=== PATIENT | female | born 1985 | race American Indian/Alaskan Native ===

== ENCOUNTER 2020-07-23 17:43 | Emergency (ER) | payer OTHER, SELFPAY ==
[2020-07-23 19:22] VITALS: BP 118/68; PULSE 80; RESP 14; TEMP 36.8; O2SAT 100; BMI 34.3
--- NOTE | 2020-07-23 19:46 | PC.NURSE ---
pt wants to go home to check on her daughter due to she is getting calls from home. pt sat 100% on room air talking in full sentences and has a steady gait. [id number]
== END 2020-07-23 19:48 | disposition left against medical advice (07) ==
LOC: HO.ED 20:45
PROVIDERS: Emergency Provider Emergency Medicine
DX: R06.02 Shortness of breath (principal)
CPT/HCPCS: 99282

== ENCOUNTER 2021-01-04 13:56 | Emergency (ER) | payer OTHER, SELFPAY ==
--- NOTE | ~2021-01-04 | US_ITS ---
EXAMINATION: TRANSABDOMINAL AND TRANSVAGINAL PELVIC ULTRASOUND CLINICAL INFORMATION: Positive beta hCG gestational age by last menstrual period 3 weeks, 2 days. COMPARISON: No priors. TECHNIQUE: Transabdominal and transvaginal imaging of the pelvis was obtained using beverly scale and color Doppler imaging. FINDINGS: No intrauterine is visualized. No focal myometrial mass was seen. The endometrium was increased in thickness. Trace simple pelvic ascites in the cul-de-sac. Right ovary measures 4.3 x 4.4 x 3.0 cm area Simple right ovarian cyst measures up to 3.6 x 2.8 x 3.3 cm likely functional. Left ovary is normal measuring up to 2.1 x 1.9 x 1.7 cm. No adnexal mass appreciated. Spectral Doppler imaging of the ovaries was not performed. The urinary bladder is normal in appearance. US/US OB <= 14 wk fetus add gest Impression: of unknown location. Given gestational age by last menstrual period of 3 weeks and 2 days and decidual reaction in the uterus, findings are likely sequelae of early . Differential diagnosis includes early intrauterine , failed , and less likely ectopic given no evidence of an adnexal mass or complex ascites is appreciated. Recommend clinical correlation, serial quantitative beta HCGs, ectopic precautions, and followup ultrasound as clinically appropriate.
--- NOTE | ~2021-01-04 | NM_ITS ---
EXAMINATION: PULMONARY PERFUSION STUDY CLINICAL INFORMATION: . Elevated d-dimer. Hemoptysis. Shortness of breath. COMPARISON: Chest radiograph from 01/04/2021. TECHNIQUE: The patient received 0.8 mCi Tc-99m MAA intravenously and a 8-view perfusion study was performed. FINDINGS: Ventilation Images: No ventilation examination was performed. Perfusion Images: No segmental perfusion defects are present. There is homogeneous distribution of activity bilaterally. There are no focal anatomic appearing perfusion defects present. NM/NM pul perfusion IMPRESSION: Normal radionuclide lung perfusion scan.
--- NOTE | ~2021-01-04 | XR_ITS ---
EXAMINATION: XR CHEST CLINICAL INFORMATION: Cough, shortness of breath. COMPARISON: Chest done on 02/01/2019. TECHNIQUE: Frontal view of the chest was obtained. FINDINGS: Low lung volume is present bilaterally. No significant abnormality is noted involving the heart, lungs, mediastinum, bony thorax or soft tissues. XR/XR chest 1V IMPRESSION: Low lung volume. No radiographic evidence of pneumonia.
--- NOTE | 2021-01-04 14:20 | PC.NURSE ---
pt ambulated into triage room where another patient was being triaged and began to yell at nursing staff that she wanted to be seen and did not have to wait. Pt continued yelling when asked to step out of the triage area where another patient was being evaluated and refused to return to the Covid waiting area. Pt then paced around the waiting area yelling and says she is here because she cannot breath. Pt was asked to stop yelling and return to her seat. She refused and exited the ER while continuing to yell at staff and security.
--- NOTE | 2021-01-04 14:31 | PC.NURSE ---
pt calmed down, was able to return to triage area and be evaluated.
[2021-01-04 14:33] VITALS: BP 113/67; PULSE 77; RESP 19; TEMP 36.6; O2SAT 100; BMI 33.3
--- NOTE | 2021-01-04 15:21 | ECG_ITS ---
Test Reason : SOB Blood Pressure : / mmHG Vent. Rate : 072 BPM Atrial Rate : 072 BPM P-R Int : 170 ms QRS Dur : 092 ms QT Int : 388 ms P-R-T Axes : 000 070 019 degrees QTc Int : 424 ms Normal sinus rhythm Normal ECG When compared with ECG of 06-JAN-2020 03:38, No significant change was found Referred By: Cherelle Garcia Electronically Signed By:ANTONIETTA PATINO
[2021-01-04 15:57] LABS: MANUAL DIFF FLAG NO
[2021-01-04 15:59] LABS: Basophils Percent Auto 0.3 % (0-2); Eosinophils Absolute Auto 0.2 X10*3/uL (0.0-0.4); Eosinophils Percent Auto 2.2 % (0-4); Hematocrit 40.3 % (37-47); Hemoglobin 12.7 g/dl (12.0-16.0); Imm Gran Abs Auto 0.03 X10*3/uL (0.00-0.03); Imm Gran Pct Auto 0.3 % (0.0-0.4); Lymphocytes Absolute Auto 3.2 X10*3/uL (1.2-4.9); Lymphocytes Percent Auto 31.7 % (20-40); Mean Corpuscular HGB Conc 31.5 g/dl (31.0-35.0); Mean Corpuscular Volume 85.6 fL (80-98); Mean Platelet Volume 11.3 fL (9.4-12.3); Monocytes Absolute Auto 0.5 X10*3/uL (0.1-1.2); Monocytes Percent Auto 5.2 % (2-11); Neutrophils Absolute Auto 6.1 X10*3/uL (2.0-8.3); Neutrophils Percent Auto 60.3 % (45-73); Platelet Count 265 X10*3/uL (160-400); Red Blood Count 4.71 X10*6/uL (4.20-5.50); Red Cell Distribution Width 14.6 % (11.0-16.0); White Blood Count 10.2 X10*3/uL (4.8-10.8)
[2021-01-04 16:07] LABS: INTERNATIONAL NORM RATIO 1.1 (0.9-1.1); Prothrombin Time 12.6 SEC (10.8-13.0)
[2021-01-04 16:10] LABS: Partial Thromboplastin Time 33.1 SEC (24.1-38.0)
[2021-01-04 16:11] LABS: D Dimer 231 NG/ML
--- NOTE | 2021-01-04 16:24 | ED_ITS ---
HPI - SOB/Dyspnea General Chief Complaint: Upper Respiratory Symptoms Stated Complaint: sob Time Seen by Provider: 01/04/21 15:05 Source: patient Mode of arrival: ambulatory Limitations: no limitations History of Present Illness HPI Narrative: 35-year-old female with a past medical history of anxiety and asthma presenting to the ED with complaints of a dry cough with associated shortness of breath and chest discomfort with deep inspiration for the past 2 days with small amounts of black/bright red blood when she has sputum production. Patient also admits to abdominal pain in the lower aspect she believes she may be constipated her last bowel movement was approximately 3 days ago. She denies any fevers, chills, dizziness, headaches, sore throat, neck pain/stiffness, dyspnea on exertion, orthopnea, palpitations, nausea/vomiting, vomiting any blood or black emesis, back pain, diarrhea, black or bloody stools, recent travel or sick contacts. Denies recent immobilization/recent surgery, history of cancer, history of hypercoagulation disorder. She denies being on any estrogen. She denies being on any blood thinners. Patient denies any other symptoms complaints or concerns at this time. MD elicited complaint: shortness of breath, cough and pain with inspiration Pertinent past history: asthma Onset (ago): day(s) (Two days worse today) Timing: constant and progressively worsening Severity: moderate Exacerbating factors: coughing and inspiration Relieving factors: nothing Known history of: asthma Associated symptoms: chest pain, pain with inspiration, cough, sputum production and abdominal pain Treatment prior to arrival: none Related Data Allergies Allergy/AdvReac Type Severity Reaction Status Date / Time No Known Allergies Allergy Verified 07/30/20 11:59 [No Known Allergies*] Review of Systems Review of Systems: Constitutional : No Weight loss, No Fever, No Chills, No Night Sweats, No Fatigue, No Malaise ENT/Mouth : No Hearing loss, No Ear Pain, No Nasal Congestion, No Sinus Pain, No Hoarseness, No sore throat, No Rhinorrhea, No Swallowing Difficulty Eyes: No Eye Pain, No Swelling, No Redness, No Foreign Body, No Discharge, No Vision Changes Cardiovascular : Positive shortness of breath, positive chest discomfort, No Chest Pain, No Dyspnea on Exertion, No Orthopnea, No Edema, No Palpitations Respiratory : Positive Cough, positive intermittent Sputum, No Wheezing, No Smoke Exposure Gastrointestinal : Positive abdominal pain, positive constipation, No Nausea, No Vomiting, No Diarrhea, No Hematochezia, No Melena Genitourinary : no irregular bleeding, No Dysuria, No Urinary Frequency, No Hematuria, No Urinary Incontinence, No Urgency, No Flank Pain, No Urinary Flow Changes, No Hesitancy Musculoskeletal : No joint pain, No Myalgias, No Joint Swelling Skin : No Skin Lesions, No rash Neuro : No Weakness, No Numbness, No Paresthesias, No Loss of Consciousness, No Dizziness, No Headache Psych : No Anxiety/Panic, No Depression, No SI/HI/AH/VH, No Social Issues, Heme/Lymph: No Bruising, No Bleeding,No Lymphadenopathy Endocrine : No Polyuria, No Polydipsia, No Temperature Intolerance Yes all other systems are reviewed and are negative [facility] Past Medical History Attestation statement: The following information was validated with the patient. Medical History No known health problems Surgical History No pertinent past surgical history Family History Family History Father Back problem Mother Breast cancer Sister Bipolar 1 disorder Chronic mental illness Asthma Schizophrenia Maternal Grandmother Cancer Paternal Grandmother Diabetes Maternal Grandmother Cervical cancer Sister Drug abuse Social History Social History Advance Directives: No Advance Directives Information Provided: Yes Patient : No Physical Exam Vital Signs: Vital Signs: Last Vital Signs Temp 98 F 01/04/21 14:33 Pulse 77 01/04/21 14:33 Resp 19 01/04/21 14:33 BP 113/67 01/04/21 14:33 Pulse Ox 100 01/04/21 14:33 Body Mass Index 33.3 vital signs have been reviewed as normal and appeared to be correct. Blood pressure normal. Heart rate normal. Respiration rate normal. Temperature normal. Oxygen saturation normal. Appearance: Alert. Oriented X3. No acute distress. Head: Normal external exam. Normocephalic. Eyes: PERRLA. EOMI. Conjunctiva and sclera normal. Eyelids normal. ENT: Pharynx normal. Uvula midline. Moist mucous membranes. No trismus noted. No drooling noted. No muffled voice noted. Neck: Normal inspection. Neck supple. FROM. No adenopathy. No meningeal signs. CVS: Normal heart rate and rhythm. Heart sound normal. No murmurs noted. Pulses normal throughout. Respiratory: No respiratory distress. Painless inspiration. Breath sounds normal. No wheezes/rales/rhonchi noted. Chest nontender. No accessory muscle usage noted or decreased air movement noted. Abdomen: Soft and mild ttp to lower abdomen. Nondistended. No guarding. No rigidity. Bowel sounds normal in all 4 quadrants. No distention noted. No organomegaly noted. No visible injury noted. No rebound tenderness. Negative Rovsing sign. Negative obturator's sign. Negative psoas sign. Negative Yu sign. Back: No CVA tenderness. Full range of motion noted. Skin: Skin warm and dry. Normal skin color. Normal skin turgor. No rashes/lesions/lacerations noted. Extremities: No lower extremity noted. No calf tenderness noted. Extremities exhibit normal range of motion. Extremities nontender. Neuro: Oriented X 3. No motor deficit. No sensory deficit. Reflexes normal. Normal steady gait. Course Course Course Narrative: 16:45pm - labs reviewed and patient with a D-dimer of 231. CRP 1.43. - serum quant 207. Therefore this is a possibly a new still awaiting [facility] and [facility]. - I discussed this with the patient and she reports her last period was 12/12/2020 and she normally has a light. It was normal like her usual periods - I discussed that she would need ultrasound to evaluate for possible . - I discussed that if we obtain a chest x-ray she could have radiation to the fetus if she is although she is still requesting the chest x-ray and is requesting to be shielded. - therefore at this time awaiting chest x-ray, OB ultrasound, COVID/RSV/flu swa b, [facility], [facility] MDM - SOB/Dyspnea MDM Narrative Medical decision making narrative: 15:20pm - 35-year-old female with a past medical history of anxiety and asthma presenting to the ED with complaints of a dry cough with associated shortness of breath and chest discomfort with deep inspiration for the past 2 days with small amounts of black/bright red blood when she has sputum production. Patient also admits to abdominal pain in the lower aspect she believes she may be constipated her last bowel movement was approximately 3 days ago. Plan: Labs, EKG. Then re-evaluate. Medical Records Attestation: I reviewed the patient's medical records. Lab Data Attestation: I reviewed the patient's lab results. Result diagrams: 01/04/21 15:52 01/04/21 15:52 Labs: Lab Results 01/04/21 01/04/21 01/04/21 Range/Units 15:52 15:52 15:52 WBC 10.2 (4.8-10.8) X10*3/uL RBC 4.71 (4.20-5.50) X10*6/uL Hgb 12.7 (12.0-16.0) g/dl Hct 40.3 (37-47) % MCV 85.6 (80-98) fL MCH 27.0 (27.0-33.0) pg MCHC 31.5 (31.0-35.0) g/dl RDW 14.6 (11.0-16.0) % Plt Count 265 (160-400) X10*3/uL MPV 11.3 (9.4-12.3) fL Immature Gran % (Auto) 0.3 (0.0-0.4) % Neut % (Auto) 60.3 (45-73) % Lymph % (Auto) 31.7 (20-40) % [place] % (Auto) 5.2 (2-11) % Eos % (Auto) 2.2 (0-4) % Baso % (Auto) 0.3 (0-2) % Lymph # (Auto) 3.2 (1.2-4.9) X10*3/uL [place] # (Auto) 0.5 (0.1-1.2) X10*3/uL Eos # (Auto) 0.2 (0.0-0.4) X10*3/uL Baso # (Auto) 0.0 (0.0-0.2) X10*3/uL Abs Immat Gran (auto) 0.03 (0.00-0.03) X10*3/uL Absolute Neuts (auto) 6.1 (2.0-8.3) X10*3/uL Absolute Nucleated RBC 0.000 (0.0-0.012) X10*3/uL Nucleated RBC % (auto) 0.0 (0.0-0.2) /100WBC PT 12.6 (10.8-13.0) SEC INR 1.1 (0.9-1.1) APTT (24.1-38.0) SEC D-Dimer NG/ML Sodium (135-145) mmol/L Potassium (3.3-5.1) mmol/L Chloride (96-108) mmol/L Carbon Dioxide (22-29) mmol/L Anion Gap (12-20) BUN (9-16) mg/dL Creatinine (0.5-1.4) mg/dL Estim Creat Clear Calc Estimated GFR Random Glucose (60-115) mg/dL Calcium (8.4-10.2) mg/dL Magnesium 2.2 (1.6-2.6) mg/dL Total Bilirubin (0.0-1.0) mg/dL AST (5-31) U/L ALT (0-31) U/L Alkaline Phosphatase (39-117) U/L Lactate Dehydrogenase (122-220) U/L Troponin I High Sens (<3.5-17.0) ng/L C-Reactive Protein (< or = 0.50) mg/dL B-Natriuretic Peptide (<100) pg/mL Total Protein (6.5-8.0) g/dL Albumin (3.5-5.0) g/dL Beta HCG, Quant mIU/mL 01/04/21 01/04/21 01/04/21 Range/Units 15:52 15:52 15:52 WBC (4.8-10.8) X10*3/uL RBC (4.20-5.50) X10*6/uL Hgb (12.0-16.0) g/dl Hct (37-47) % MCV (80-98) fL MCH (27.0-33.0) pg MCHC (31.0-35.0) g/dl RDW (11.0-16.0) % Plt Count (160-400) X10*3/uL MPV (9.4-12.3) fL Immature Gran % (Auto) (0.0-0.4) % Neut % (Auto) (45-73) % Lymph % (Auto) (20-40) % [place] % (Auto) (2-11) % Eos % (Auto) (0-4) % Baso % (Auto) (0-2) % Lymph # (Auto) (1.2-4.9) X10*3/uL [place] # (Auto) (0.1-1.2) X10*3/uL Eos # (Auto) (0.0-0.4) X10*3/uL Baso # (Auto) (0.0-0.2) X10*3/uL Abs Immat Gran (auto) (0.00-0.03) X10*3/uL Absolute Neuts (auto) (2.0-8.3) X10*3/uL Absolute Nucleated RBC (0.0-0.012) X10*3/uL Nucleated RBC % (auto) (0.0-0.2) /100WBC PT (10.8-13.0) SEC INR (0.9-1.1) APTT 33.1 (24.1-38.0) SEC D-Dimer 231 NG/ML Sodium 140 (135-145) mmol/L Potassium 3.8 (3.3-5.1) mmol/L Chloride 106 (96-108) mmol/L Carbon Dioxide 26 (22-29) mmol/L Anion Gap 12 (12-20) BUN 10 (9-16) mg/dL Creatinine 0.74 (0.5-1.4) mg/dL Estim Creat Clear Calc 116.9 Estimated GFR > 60 Random Glucose 92 (60-115) mg/dL Calcium 9.4 (8.4-10.2) mg/dL Magnesium (1.6-2.6) mg/dL Total Bilirubin 0.6 (0.0-1.0) mg/dL AST 18 (5-31) U/L ALT 17 (0-31) U/L Alkaline Phosphatase 94 (39-117) U/L Lactate Dehydrogenase 163 (122-220) U/L Troponin I High Sens < 3.5 (<3.5-17.0) ng/L C-Reactive Protein 1.43 H (< or = 0.50) mg/dL B-Natriuretic Peptide < 10 (<100) pg/mL Total Protein 7.2 (6.5-8.0) g/dL Albumin 4.2 (3.5-5.0) g/dL Beta HCG, Quant 207 mIU/mL ECG Data Attestation: I personally reviewed and interpreted this ECG as follows: ECG interpretation date: 01/04/21 ECG interpretation time: 15:36 Interpretation: Normal sinus rhythm with a ventricular rate of 72 with a normal IA interval normal QRS duration normal QT/QTC interval. No acute ischemic changes are noted. Similar when compared to prior EKG on 01/06/2020.
[2021-01-04 16:33] LABS: Alanine Aminotransferase 17 U/L (0-31); Albumin Level 4.2 g/dL (3.5-5.0); Alkaline Phosphatase 94 U/L (39-117); Anion Gap 12 (12-20); Aspartate Amino Transferase 18 U/L (5-31); Bilirubin Total 0.6 mg/dL (0.0-1.0); Blood Urea Nitrogen 10 mg/dL (9-16); C Reactive Protein 1.43 mg/dL (< or = 0.50); Calcium 9.4 mg/dL (8.4-10.2); Carbon Dioxide 26 mmol/L (22-29); Chloride 106 mmol/L (96-108); Creatinine Clr Calc Pharmacy 116.9; Estimated Glomerular Filt Rate > 60; Glucose Random 92 mg/dL (60-115); Lactate Dehydrogenase 163 U/L (122-220); Magnesium 2.2 mg/dL (1.6-2.6); Potassium 3.8 mmol/L (3.3-5.1); Sodium 140 mmol/L (135-145); Total Protein 7.2 g/dL (6.5-8.0)
[2021-01-04 16:40] LABS: B Type Natriuretic Peptide < 10 pg/mL (<100); Troponin-I High Sensitivity < 3.5 ng/L (<3.5-17.0)
[2021-01-04 16:44] LABS: HCG Quantitative 207 mIU/mL
[2021-01-04 16:56] LABS: Procalcitonin 0.02 ng/mL
[2021-01-04 16:57] LABS: Glucose Urine UA NEG (NEG); Leukocyte Esterase Urine NEG (NEG); Nitrite Urine NEG (NEG); Specific Gravity - Urine 1.015 (1.005-1.025); Urine Blood NEG (NEG); Urine Ketones NEG (NEG); Urine Protein NEG (NEG-TRACE)
[2021-01-04 16:57] LABS: Ferritin 21 ng/mL (10-122)
[2021-01-04 16:59] LABS: Appearance Urine CLEAR; Color Urine YELLOW
[2021-01-04 17:07] LABS: UPreg QC Valid YES; Urine Pregnancy POSITIVE (NEGATIVE)
[2021-01-04 18:00] VITALS: BP 122/50; PULSE 77; PULSE 79; RESP 18; O2SAT 99
--- NOTE | 2021-01-04 18:32 | PC.NURSE ---
pt updated on status of [facility] med. pt verbally descilated regarding wait time and need for study.
[2021-01-04 18:45] LABS: Influenza A PCR NEGATIVE (Negative); Influenza B PCR NEGATIVE (Negative); Resp Syncy Virus RNA Qual PCR NEGATIVE (Negative); SARS COV2 PCR INHOUSE NEGATIVE (Negative)
--- NOTE | 2021-01-04 19:07 | PC.NURSE ---
neuc med at bedside for conset with provider.
--- NOTE | 2021-01-04 19:37 | PC.NURSE ---
pt to [facility] at this time.
== END 2021-01-04 21:20 | disposition home or self-care (01) ==
PROVIDERS: Physician Assistant Medical; Emergency Provider Emergency Medicine; PCP Internal Medicine
DX: O26.891 Other specified pregnancy related conditions, first trimester (principal); B34.9 Viral infection, unspecified; Z20.822 Contact with and (suspected) exposure to COVID-19; O34.81 Maternal care for other abnormalities of pelvic organs, first trimester; N83.291 Other ovarian cyst, right side; Z3A.01 Less than 8 weeks gestation of pregnancy
CPT/HCPCS: 0241U; 36415; 71045; 76801; 76802; 78580; 80053; 81003; 81025; 82728; 83615; 83735; 83880; 84145; 84484; 84702; 85025; 85379; 85610; 85730; 86140; 93005; 99284; 99285; A9540

== ENCOUNTER → 2021-01-07 15:25 | Outpatient (BNVA) | payer OTHER, SELFPAY | PROVIDERS: PCP Internal Medicine; Visit Provider Obstetrics & Gynecology | DX: Z34.90 Encounter for supervision of normal pregnancy, unspecified, unspecified trimester (principal); Z3A.00 Weeks of gestation of pregnancy not specified | CPT/HCPCS: 81025; 99212 ==

== ENCOUNTER 2021-03-07 14:54 | Outpatient (REF) | payer OTHER, SELFPAY | END 2021-03-07 14:55 | disposition home or self-care (01) | LOC: HO.LAB 14:54 | PROVIDERS: Visit Provider Obstetrics & Gynecology | DX: Z34.90 Encounter for supervision of normal pregnancy, unspecified, unspecified trimester (principal) | CPT/HCPCS: 36415; 84702 ==

== ENCOUNTER 2021-03-10 09:56 | Outpatient (REF) | payer OTHER, SELFPAY ==
--- NOTE | ~2021-03-10 | US_ITS ---
EXAMINATION: US OBSTETRICAL ULTRASOUND CLINICAL INFORMATION: Encounter for supervision abnormal . COMPARISON: Previous. OB ultrasound 01/04/2021 LMP: 12/12/2020. Gestational age by maternal dates is 12 weeks 4 days. Estimated date of delivery by maternal dates is 09/18/2021. TECHNIQUE: Transabdominal OB ultrasound FINDINGS: There is a single intrauterine gestational sac with embryo/fetus, and cardiac activity. There is no significant subchorionic hemorrhage or hematoma. HR: 152 beats per minute. CRL (crown rump length): 6.8 cm (13 weeks 1 day +/- 4 days). TIFFANY (estimated date of delivery): 09/14/2021 +/- 4 days. MATERNAL ADNEXA: The right maternal ovary measures 2.4 x 1.5 x 1.9 cm. The left maternal ovary measures 2.3 x 1.9 x 1.6 cm. There is no significant maternal adnexal mass. No maternal pelvic ascites. US/US OB <= 14 weeks fetus IMPRESSION: 1. Single intrauterine gestation with ultrasound gestational age of 13 weeks 1 day +/- 4 days. 2. Estimated date of delivery is 09/14/2021 +/- 4 days. 3. No maternal adnexal mass or pelvic ascites.
== END 2021-03-10 09:57 | disposition home or self-care (01) ==
LOC: HO.US 09:56
PROVIDERS: Visit Provider Obstetrics & Gynecology
DX: Z34.91 Encounter for supervision of normal pregnancy, unspecified, first trimester (principal)
CPT/HCPCS: 76801

== ENCOUNTER → 2021-03-11 11:47 | Outpatient (BNVA) | payer OTHER, SELFPAY | PROVIDERS: Visit Provider Obstetrics & Gynecology ==

== ENCOUNTER → 2021-03-21 13:43 | Outpatient (BNVA) | payer OTHER, SELFPAY | PROVIDERS: Visit Provider Advanced Practice Midwife | DX: O09.522 Supervision of elderly multigravida, second trimester (principal); O99.342 Other mental disorders complicating pregnancy, second trimester; F41.9 Anxiety disorder, unspecified; O99.332 Smoking (tobacco) complicating pregnancy, second trimester; F17.200 Nicotine dependence, unspecified, uncomplicated; Z3A.14 14 weeks gestation of pregnancy | CPT/HCPCS: 99212 ==

== ENCOUNTER 2021-04-30 12:56 | Outpatient (REF) | payer OTHER, SELFPAY ==
[2021-05-01 02:43] LABS: CT PCR NOT DETECTED (Not Detect.); NG PCR NOT DETECTED (Not Detect.)
[2021-05-01 08:45] LABS: BV Int Neg Control Negative (Negative); BV Int Pos Control Positive (Positive)
[2021-05-06 18:37] LABS: HPV mRNA E6/E7 rflx Not Detected (Not Detected)
== END 2021-04-30 12:57 | disposition home or self-care (01) ==
LOC: HO.LAB 12:56
PROVIDERS: Visit Provider Advanced Practice Midwife
DX: O09.522 Supervision of elderly multigravida, second trimester (principal); O99.332 Smoking (tobacco) complicating pregnancy, second trimester; O26.892 Other specified pregnancy related conditions, second trimester; B37.3 Candidiasis of vulva and vagina; Z3A.19 19 weeks gestation of pregnancy; Z79.899 Other long term (current) drug therapy
CPT/HCPCS: 81003; 87480; 87491; 87510; 87591; 87624; 87660; 88142; 99212

== ENCOUNTER 2021-05-09 13:00 | Outpatient (REF) | payer OTHER, SELFPAY ==
--- NOTE | ~2021-05-09 | US_ITS ---
EXAMINATION: US OBSTETRICAL CLINICAL INFORMATION: 35-year-old the at 21.1 weeks of gestation AMA Screening for anomaly High BMI COMPARISON: 03/10/2021 TECHNIQUE: Real-time transabdominal ultrasound was performed using C1-5 megahertz transducer. FINDINGS: A single, active, fetus is seen in vertex presentation. The placenta is anterior without previa, and the amniotic fluid volume is wnl. MEASUREMENTS: 1. Biparietal Diameter: 4.9 cm; 21.0 wks 2. Occipital Frontal Diameter: 6.4 cm 3. Head Circumference: 18.6 cm; 21.0 wks 4. Abdominal Circumference: 16.6 cm; 21.5 wks 5. Femur Length: 4.0 cm; 23.1 wks 6. Humerus Length: 3.6 cm; 22.3 wks 7. Tibia Length: 3.2 cm; 22.0 wks 8. Ulna Length: 3.3 cm; 22.6 wks 9. Lateral ventricle: 0.56 cm 10. Cerebellum: 2.25 cm; 22.3 wks 11. Cisterna Magna: 0.56 cm 12. Nuchal Fold: 5.4 mm 13. Heart Rate: 137 beats per minute Rt ovary: normal Lt ovary: Unable to visualize Cervical length 3.3 cm on T/A. GESTATIONAL AGE: 1. Established GA: 21.1 wks 2. GA from [facility]: 21.5 wks ESTIMATED DATE OF DELIVERY: 1. Established TIFFANY: 09/18/2021 2. TIFFANY from [facility]: 09/14/2021 ANATOMY: The visualized anatomy includes but not limited to: 1. Cranium: Normal 2. Intracranial anatomy: cavum septum pellucidi, lateral ventricles, choroid plexus, cerebellum, posterior fossa, third and fourth ventricles. 3. face: orbits, lip/palate, profile, nasal bone 4. Heart: four-chamber view of the heart, ventricular septum, foramen ovale, pulmonary vein, left and right outflow tracts, three-vessel view, 3 vessel trachea view, aortic and ductal arches, situs.. 5. Diaphragm: Normal 6. Abdominal wall: Normal 7. Cord Insertion: Normal 8. Spine: Cervical, thoracic, lumbar, sacral. 9. Stomach: Normal size and shape 10. Right Kidney: Normal 11. Left Kidney: Normal 12. 3 vessel cord: Normal 13. Upper extremity: Open hands, fifth digit. 14. Lower extremity: Tibia, fibula, bilateral feet. 15. Bladder: Normal 16. Genitalia: Male, patient aware US/US OB /maternal detail IMPRESSION: 1. Single, living, intrauterine with appropriate biometry. 2. Normal survey DISCUSSION: I reviewed today's ultrasound findings. We discussed the limitations of ultrasound in diagnosing aneuploidy and other congenital abnormalities. I reviewed the differences between screening test and diagnostic test. Amniocentesis was discussed and declined. Patient is not sure if she had the N IPT. Expressed an interest in having it done. I reassured her that the there is no gestational age cut off and that she should the verify whether she already had the test with the as[facility] administrator's office. She was informed that the baseline incidence of congenital abnormalities is approximately 3-5%. Not all these conditions are diagnosable in utero. RECOMMENDATIONS: 1. Interval growth evaluation in approximately 6 weeks is suggested as her fundal height evaluation will not be reliable. (Not scheduled). Thank you for allowing me to participate in her care. Total time 30 minutes. The time spent was devoted to counseling the patient about the disease and diagnosis, coordinating care including reviewing her records, pertinent lab data and studies, as well as discussing diagnostic evaluation and workup, plan therapeutic interventions and future disposition of care. This includes any additional research needed to obtain further information in formulating the plan of care of this patient. This note was generated with a voice recognition program. Please excuse any errors which may have been overlooked during my review of this note. Sometimes these errors may affect the content or meaning of a given sentence.
== END 2021-05-09 13:01 | disposition home or self-care (01) ==
LOC: HO.US 13:00
PROVIDERS: Visit Provider Advanced Practice Midwife
DX: O09.522 Supervision of elderly multigravida, second trimester (principal); O35.9XX0 Maternal care for (suspected) fetal abnormality and damage, unspecified, not applicable or unspecified; O26.892 Other specified pregnancy related conditions, second trimester; B37.3 Candidiasis of vulva and vagina; Z3A.21 21 weeks gestation of pregnancy
CPT/HCPCS: 76811

== ENCOUNTER 2021-05-14 14:32 | Outpatient (REF) | payer OTHER, SELFPAY ==
[2021-05-14 15:29] LABS: Hematocrit 31.9 % (37-47); Hemoglobin 10.6 g/dl (12.0-16.0); Mean Corpuscular HGB Conc 33.2 g/dl (31.0-35.0); Mean Corpuscular Volume 87.2 fL (80-98); Mean Platelet Volume 11.2 fL (9.4-12.3); Platelet Count 216 X10*3/uL (160-400); Red Blood Count 3.66 X10*6/uL (4.20-5.50); Red Cell Distribution Width 15.2 % (11.0-16.0); White Blood Count 12.9 X10*3/uL (4.8-10.8)
[2021-05-14 15:51] LABS: Amphetamine Screen Urine Not Detected (Not Detect); Barbiturates, Urine Not Detected (Not Detect); Benzodiazepines Screen Urine Not Detected (Not Detect); Cannabinoid Screen Urine Not Detected (Not Detect); Cocaine Screen Urine Not Detected (Not Detect); Fentanyl, urine Not Detected (Not Detect); Opiate Screen Urine Not Detected (Not Detect); Phencyclidine Screen Urine POSITIVE (Not Detect)
[2021-05-14 16:36] LABS: Syphilis Screen Nonreactive (Nonreactive)
[2021-05-15 09:22] LABS: HBsAGNum1 0.14 S/CO (0.00-0.99); HIV AB/AG Nonreactive (Nonreactive); HIV Num 1 0.07 S/CO (0.00-0.99); Hepatitis B Surface Antigen Negative (Negative); ~HepC Num1 0.07 S/CO (0.00-0.79); ~Hepatitis C Antibody Nonreactive (Nonreactive)
[2021-05-15 17:26] LABS: Rubella IgG Antibody 2.04 Index
== END 2021-05-14 14:33 | disposition home or self-care (01) ==
LOC: HO.LAB 14:32
PROVIDERS: Visit Provider Advanced Practice Midwife
DX: Z34.90 Encounter for supervision of normal pregnancy, unspecified, unspecified trimester (principal)
CPT/HCPCS: 80307; 85027; 86762; 86780; 86787; 86803; 86850; 86900; 86901; 87086; 87340; 87389

== ENCOUNTER → 2021-06-04 13:24 | Outpatient (BNVA) | payer OTHER, SELFPAY | PROVIDERS: Visit Provider Advanced Practice Midwife | DX: O99.332 Smoking (tobacco) complicating pregnancy, second trimester (principal); F17.210 Nicotine dependence, cigarettes, uncomplicated; F19.11 Other psychoactive substance abuse, in remission; Z3A.24 24 weeks gestation of pregnancy | CPT/HCPCS: 81003; 99212 ==

== ENCOUNTER 2021-06-20 11:40 | Outpatient (REF) | payer OTHER, SELFPAY ==
--- NOTE | ~2021-06-20 | US_ITS ---
EXAMINATION: OBSTETRICAL ULTRASOUND, Follow up HISTORY: 35-year-old at 27.1 weeks of gestation Size date discrepancy COMPARISON: 05/09/2021 TECHNIQUE: Real time transabdominal imaging with color and M-mode Doppler. PRESENTATION: Breech PLACENTA LOCATION: Anterior without previa AMNIOTIC FLUID: Normal MEASUREMENTS: 1. Biparietal Diameter: 6.3 cm; 25.4 wks 2. Head Circumference: 24.9 cm; 20 7. wks 3. Abdominal Circumference: 22.4 cm; 26.6 wks 4. Femur Length: 5.0 cm; 26.6 wks 5. Heart Rate: 150 beats per minute WEIGHT: Estimated weight is 974 grams (2 lbs 2 oz) -- 23 %. Normal views of lateral cerebral ventricle, profile, nose/lips, 4ch view, LVOT, RVOT, gender. GESTATIONAL AGE: 1. Established GA: 27.1 wks 2. GA from A: 26.5 wks ESTIMATED DATE OF DELIVERY: 1. Established TIFFANY: 09/18/2021 2. TIFFANY from [facility]: 09/21/2021 US/US OB follow up IMPRESSION: 1. A single fetus with appropriate interval growth. 2. Previously limited views of the anatomy were seen as listed above. No abnormalities were noted in visualized anatomy. 3. Normal BPP score and MAKAYLA. I reviewed today's findings. Gave her reassurance that the interval growth is appropriate. Her urine tox screen was positive for PCP. She also has not had the N IPT. She is to have it drawn today. We discussed the diagnostic utility, sensitivity and specificity of the test. Further follow-up has not been scheduled. RECOMMENDATIONS: 1. f/u in approximately 6 weeks is suggested. Thank you very much for this referral. Total time 20 minutes. The time spent was devoted to counseling the patient about the disease and diagnosis, coordinating care including reviewing her records, pertinent lab data and studies, as well as discussing diagnostic evaluation and workup, plan therapeutic interventions and future disposition of care. This includes any additional research needed to obtain further information in formulating the plan of care of this patient. This note was generated with a voice recognition program. Please excuse any errors which may have been overlooked during my review of this note. Sometimes these errors may affect the content or meaning of a given sentence.
== END 2021-06-20 11:41 | disposition home or self-care (01) ==
LOC: HO.US 11:40
PROVIDERS: Visit Provider Advanced Practice Midwife
DX: O09.522 Supervision of elderly multigravida, second trimester (principal); O26.892 Other specified pregnancy related conditions, second trimester; F17.200 Nicotine dependence, unspecified, uncomplicated; F19.11 Other psychoactive substance abuse, in remission
CPT/HCPCS: 76816

== ENCOUNTER → 2021-07-03 13:07 | Outpatient (BNVA) | payer OTHER, SELFPAY | PROVIDERS: Visit Provider Advanced Practice Midwife | DX: O09.523 Supervision of elderly multigravida, third trimester (principal); O99.333 Smoking (tobacco) complicating pregnancy, third trimester; F19.11 Other psychoactive substance abuse, in remission; F17.200 Nicotine dependence, unspecified, uncomplicated; Z3A.29 29 weeks gestation of pregnancy | CPT/HCPCS: 99212 ==

== ENCOUNTER 2022-07-04 16:43 | Emergency (ER) | payer OTHER, SELFPAY ==
--- NOTE | ~2022-07-04 | US_ITS ---
EXAMINATION: US OBSTETRICAL ULTRASOUND CLINICAL INFORMATION: Vaginal bleeding with cramping for one day. Beta-hCG of 10,740 on 07/04/2022. COMPARISON: None. LMP: 05/16/2022. Gestational age by maternal dates is 7 weeks. Estimated date of delivery by maternal dates is 02/20/2023. TECHNIQUE: Real-time scanning of the pelvis is acquired via transabdominal and transvaginal approach. FINDINGS: The uterus is anteverted. Normal-appearing intrauterine is not seen. Endometrial stripe thickness is 1.7 cm. Endometrium is heterogeneous in echotexture. A small oval and elongated complex avascular structure is noted in the cervical canal, measuring 1.8 x 0.6 cm in length and AP dimension, which may represent hemorrhage material in the cervical canal versus abnormally located gestational sac. A few scattered small anechoic changes are noted in the myometrium. MATERNAL ADNEXA: The right maternal ovary measures 2.8 x 1.7 x 1.9 cm. A 1.3 x 1.1 x 1.3 cm cystic structure in the right ovary with peripheral vascularity is felt to represent corpus luteal cyst. The left maternal ovary measures 1.9 x 1.5 x 1.5 cm. The ovary is unremarkable. There is no significant maternal adnexal mass. No maternal pelvic ascites. US/US OB pelvic and transvaginal IMPRESSION: No evidence of normal-appearing intrauterine . A structure in the cervical canal may represent hemorrhagic product versus abnormally located abnormal-appearing gestational sac. No definite sonographic evidence to suggest ectopic at this time. Recommend close clinical correlation and close clinical followup. Recommend correlation with serial beta-hCG. Follow-up ultrasound may be acquired as clinically deemed necessary.
[2022-07-04 16:50] VITALS: BP 112/47; PULSE 98; RESP 18; TEMP 36.6; O2SAT 98
[2022-07-04 17:11] LABS: MANUAL DIFF FLAG NO
[2022-07-04 17:12] LABS: Basophils Percent Auto 0.3 % (0-2); Eosinophils Absolute Auto 0.2 X10*3/uL (0.0-0.4); Eosinophils Percent Auto 2.1 % (0-4); Hematocrit 37.7 % (37.0-47.0); Hemoglobin 12.2 g/dl (12.0-16.0); Imm Gran Abs Auto 0.03 X10*3/uL (0.00-0.03); Imm Gran Pct Auto 0.3 % (0.0-0.4); Lymphocytes Absolute Auto 2.9 X10*3/uL (1.2-4.9); Lymphocytes Percent Auto 28.7 % (20-40); Mean Corpuscular HGB Conc 32.4 g/dl (31.0-35.0); Mean Corpuscular Volume 86.5 fL (80.0-98.0); Mean Platelet Volume 11.4 fL (9.4-12.3); Monocytes Absolute Auto 0.6 X10*3/uL (0.1-1.2); Monocytes Percent Auto 5.6 % (2-11); Neutrophils Absolute Auto 6.3 x10*3/uL (2.0-8.3); Platelet Count 214 X10*3/uL (160-400); Red Blood Count 4.36 X10*6/uL (4.20-5.50); Red Cell Distribution Width 14.1 % (11.0-16.0)
[2022-07-04 17:29] LABS: Alanine Aminotransferase 13 U/L (0-31); Alkaline Phosphatase 70 U/L (39-117); Anion Gap 15 (12-20); Aspartate Amino Transferase 14 U/L (5-31); Bilirubin Total 0.4 mg/dL (0.0-1.0); Blood Urea Nitrogen 10 mg/dL (9-16); Calcium 9.2 mg/dL (8.4-10.2); Carbon Dioxide 23 mmol/L (22-29); Chloride 107 mmol/L (96-108); Estimated Glomerular Filt Rate > 60; Glucose Random 104 mg/dL (60-115); Potassium 3.8 mmol/L (3.3-5.1); Sodium 141 mmol/L (135-145); Total Protein 6.6 g/dL (6.5-8.0)
[2022-07-04 17:35] LABS: HCG Quantitative 10740 mIU/mL
[2022-07-04 21:40] VITALS: BP 129/72; PULSE 76; TEMP 36.2; O2SAT 100
[2022-07-04 22:33] VITALS: BP 112/72; PULSE 80; TEMP 36.2; O2SAT 100
[2022-07-04 22:37] LABS: Appearance Urine Turbid; Color Urine RED; Glucose Urine UA Negative (Negative); Leukocyte Esterase Urine Moderate (2+) (Negative); Nitrite Urine Negative (Negative); PH 7.5 (5.0-9.0); UMIC TRIGGER UACC YES; Urine Blood Large (3+) (Negative); Urine Ketones Negative (Negative); Urine Protein 100 (2+) mg/dL (Neg-Trace)
[2022-07-04 22:45] LABS: Bacteria Urine Trace (None Seen); Hyaline Casts Urine 0-2 /LPF (0-2); RBC Urine >20 /HPF (0-2); WBC Urine 0-5 /HPF (0-5)
--- NOTE | 2022-07-04 23:05 | ED.PREGNANCY ---
HPI - General Chief complaint: Vaginal Bleeding Stated complaint: ?Miscarriage Time Seen by Provider: 07/04/22 20:16 Source: patient Mode of arrival: ambulatory History of Present Illness HPI Narrative: 37-year-old female who presents with vaginal bleeding and lower pelvic cramping and states that she had positive test on June 15. She denies any associated fever, chills, nausea, vomiting, diarrhea or urinary pain/burning/frequency. Patient states that this evening she began having vaginal bleeding after going to the bathroom that has clots. Related Data Home Medications Medication Instructions Recorded Confirmed prenat.vits,jay,vwh-rzbs-umsry 1 tab PO DAILY 04/30/21 07/03/21 Previous Rx's Medication Instructions Recorded aspirin 81 mg chewable tablet 2 tab PO .at bedtime 30 days #60 03/21/21 tabs Allergies Allergy/AdvReac Type Severity Reaction Status Date / Time No Known Allergies Allergy Verified 07/03/21 13:08 [No Known Allergies*] Review of Systems Review of Systems: Pertinent positives and negatives as stated in HPI 10 point review of systems is otherwise negative. [facility] Past Medical History Source: nursing notes reviewed Medical History No known health problems Surgical History No pertinent past surgical history Family History Family History Father Back problem Diabetes Mother COPD (chronic obstructive pulmonary disease) Active asthma Sister Bipolar 1 disorder Chronic mental illness Asthma Schizophrenia Maternal Grandmother Cancer Paternal Grandmother Diabetes Maternal Grandmother Cervical cancer Sister Drug abuse Social History Social History Household Members: Children Alcohol intake: never Trauma History: none Agree to transfusion: Yes Advance Directives: No Advance Directives Information Provided: No Physical Exam Vital Signs: Vital Signs: Last Vital Signs Temp 97.1 F 07/04/22 22:33 Pulse 80 07/04/22 22:33 Resp 18 07/04/22 16:50 BP 112/72 07/04/22 22:33 Pulse Ox 100 07/04/22 22:33 O2 Del Method 07/04/22 22:33 BMI result Body Mass Index 30.0 VITAL SIGNS: Reviewed. GENERAL: Well developed, well nourished, in no acute distress. HEAD: Normocephalic/atraumatic EYES: PERRLA, EOMI EARS: Ext canals without abnormality OROPHARYNX: no oral lesions noted, posterior pharynx clear LUNGS: Normal breath sounds. No adventitious sounds or accessory muscle use. SpO2<100> CARDIOVASCULAR: Regular rate and rhythm without noted murmurs ABDOMEN: Soft, non-tender, non-distended with bowel sounds. MUSCULOSKELETAL: No tenderness, deformities, or effusions noted on gross inspection. EXTREMITIES: No cyanosis, clubbing or edema. SKIN: Inspection of the skin reveals no rashes NEUROLOGIC: Alert and oriented x 4. Strength and sensation to light touch were grossly intact x 4. Course Course Course Narrative: 37-year-old female with history and clinical presentation most suggestive of SAB. Review of all investigations to include ultrasound demonstrates that patient is not anemic nor does she have a UTI and that there is no IUP and there is demonstrated a structure in the cervical canal and may represent hemorrhagic product verses abnormally located abnormal appearing gestational sac. Patient was provided with Tylenol as well as anti-inflammatory and will be provided with a referral to follow-up with Obstetrics on Wednesday morning. MDM - OB/Uterine Contractions Lab Data Result diagrams: 07/04/22 17:07 07/04/22 17:07 Labs: Lab Results 07/04/22 07/04/22 07/04/22 Range/Units 17:07 17:07 21:57 WBC 10.0 (4.8-10.8) X10*3/uL RBC 4.36 (4.20-5.50) X10*6/uL Hgb 12.2 (12.0-16.0) g/dl Hct 37.7 (37.0-47.0) % MCV 86.5 (80.0-98.0) fL MCH 28.0 (27.0-33.0) pg MCHC 32.4 (31.0-35.0) g/dl RDW 14.1 (11.0-16.0) % Plt Count 214 (160-400) X10*3/uL MPV 11.4 (9.4-12.3) fL Immature Gran % (Auto) 0.3 (0.0-0.4) % Neut % (Auto) 63.0 (45-73) % Lymph % (Auto) 28.7 (20-40) % [place] % (Auto) 5.6 (2-11) % Eos % (Auto) 2.1 (0-4) % Baso % (Auto) 0.3 (0-2) % Lymph # (Auto) 2.9 (1.2-4.9) X10*3/uL [place] # (Auto) 0.6 (0.1-1.2) X10*3/uL Eos # (Auto) 0.2 (0.0-0.4) X10*3/uL Baso # (Auto) 0.0 (0.0-0.2) X10*3/uL Abs Immat Gran (auto) 0.03 (0.00-0.03) X10*3/uL Absolute Neuts (auto) 6.3 (2.0-8.3) x10*3/uL Absolute Nucleated RBC 0.000 (0.0-0.012) X10*3/uL Nucleated RBC % (auto) 0.0 (0.0-0.2) /100WBC Sodium 141 (135-145) mmol/L Potassium 3.8 (3.3-5.1) mmol/L Chloride 107 (96-108) mmol/L Carbon Dioxide 23 (22-29) mmol/L Anion Gap 15 (12-20) BUN 10 (9-16) mg/dL Creatinine 0.70 (0.5-1.4) mg/dL Estim Creat Clear Calc 111.0 Estimated GFR > 60 Random Glucose 104 (60-115) mg/dL Calcium 9.2 (8.4-10.2) mg/dL Total Bilirubin 0.4 (0.0-1.0) mg/dL AST 14 (5-31) U/L ALT 13 (0-31) U/L Alkaline Phosphatase 70 D (39-117) U/L Total Protein 6.6 (6.5-8.0) g/dL Albumin 4.0 (3.5-5.0) g/dL Beta HCG, Quant 31599 mIU/mL Urine Color RED Urine Appearance Turbid Urine pH 7.5 (5.0-9.0) Ur Specific [place] 1.010 (1.005-1.025) Urine Protein 100 (2+) H (Neg-Trace) mg/dL Urine Glucose (UA) Negative (Negative) mg/dL Urine Ketones Negative (Negative) mg/dL Urine Blood Large (3+) H (Negative) Urine Nitrite Negative (Negative) Ur Leukocyte Esterase Moderate (2+) H (Negative) Urine RBC >20 H (0-2) /HPF Urine WBC 0-5 (0-5) /HPF Ur Squamous Epith Cells 11-20 (0-2) /HPF Urine Bacteria Trace (None Seen) Hyaline Casts 0-2 (0-2) /LPF Discharge Plan Discharge Clinical Impression: SAB (spontaneous ) Patient Disposition: Home, Self-Care Instructions: Miscarriage (ED) Additional Instructions: You will need to have follow-up levels tested. You will also likely need to have a repeat ultrasound performed. You have been referred to the [facility] [place] and should call them on Wednesday morning. Continue to take [id number] Tylenol (1000 mg every 6 hours as needed for pain control) as well as ibuprofen 400 mg every 6 hours. If you have any worsening of symptoms please do not hesitate to return to the emergency room. Prescriptions: No Action aspirin 81 mg tablet,chewable 2 tab PO .at bedtime 30 Days Qty: 60 2RF prenat.vits,jay,kuf-pbie-hmnpk Tablet 1 tab PO DAILY Referrals: Pepe Nuno MD [Physician] - (Pt with SAB will need rpt hcg and ?Ultrasound)
[2022-07-04] MEDS: Acetaminophen 325 MG TABLET 975 MG PO (23:58)
[2022-07-04] MEDS: Ketorolac Tromethamine 15 MG/ML VIAL IM (23:59)
== END 2022-07-05 00:25 | disposition home or self-care (01) ==
PROVIDERS: Emergency Provider Student in an Organized Health Care Education/Training Program
DX: O03.9 Complete or unspecified spontaneous abortion without complication (principal); O09.521 Supervision of elderly multigravida, first trimester; O99.331 Smoking (tobacco) complicating pregnancy, first trimester; F17.200 Nicotine dependence, unspecified, uncomplicated; Z3A.01 Less than 8 weeks gestation of pregnancy
CPT/HCPCS: 36415; 76801; 76817; 80053; 81001; 84702; 85025; 96372; 99283; 99284; J1885

== ENCOUNTER 2022-07-07 12:42 | Outpatient (REF) | payer OTHER, SELFPAY ==
[2022-07-07 13:38] LABS: HCG Quantitative 981 mIU/mL
== END 2022-07-07 12:43 | disposition home or self-care (01) ==
LOC: HO.LAB 12:42
PROVIDERS: Visit Provider Obstetrics & Gynecology
DX: O03.9 Complete or unspecified spontaneous abortion without complication (principal)
CPT/HCPCS: 36415; 84702; 99212

== ENCOUNTER 2023-02-28 16:49 | Emergency (ER) | payer OTHER, SELFPAY ==
[2023-02-28 17:15] VITALS: BP 107/62; PULSE 71; RESP 18; TEMP 36.1; O2SAT 99; BMI 34.8
--- NOTE | 2023-02-28 17:18 | ED.GENADULT ---
HPI - General Adult General Chief complaint: Vaginal Bleeding Stated complaint: / and pain and bleeding Time Seen by Provider: 02/28/23 22:09 Source: patient, RN notes reviewed and old records reviewed Mode of arrival: ambulatory Limitations: no limitations History of Present Illness HPI narrative: 37-year-old female presents for evaluation of ?I am and bleeding. ? Patient reports that she would be She reports that she went to get a chest x-ray a few weeks ago and she was told that she is . However the patient also states that she had a dilation and curettage for an elective just over 2 weeks ago She states that this morning she started with lower abdominal cramping and vaginal bleeding that was minimal She reports that she has not had sexual intercourse since she had a D&C Related Data Home Medications Medication Instructions Recorded Confirmed prenat.vits,jay,oms-zmoj-iadmz 1 tab PO DAILY 04/30/21 07/03/21 Previous Rx's Medication Instructions Recorded aspirin 81 mg chewable tablet 2 tab PO .at bedtime 30 days #60 03/21/21 tabs Allergies Allergy/AdvReac Type Severity Reaction Status Date / Time No Known Allergies Allergy Verified 02/28/23 17:15 [No Known Allergies*] Review of Systems Constitutional: Constitutional: Reports as per HPI, Denies chills, Denies fatigue, Denies fever(s) and Denies headache(s) ENT: Denies headache(s) Cardiovascular: Cardiovascular: Denies chest pain and Denies dyspnea Respiratory: Respiratory: Denies cough and Denies dyspnea Gastrointestinal: Gastrointestinal: Reports abdominal pain, Denies constipation and Denies vomiting Genitourinary: Genitourinary: Denies dysuria Neurologic: Denies headache(s) and Denies focal weakness Endocrine: Endocrine: Denies fatigue PMF Past Medical History Medical History No known health problems Surgical History No pertinent past surgical history Family History Family History Father Back problem Diabetes Mother COPD (chronic obstructive pulmonary disease) Active asthma Sister Bipolar 1 disorder Chronic mental illness Asthma Schizophrenia Maternal Grandmother Cancer Paternal Grandmother Diabetes Maternal Grandmother Cervical cancer Sister Drug abuse Social History Social History Household Members: Children Alcohol intake: never Trauma History: none Agree to transfusion: Yes Advance Directives: No Advance Directives Information Provided: No Physical Exam ED Vital Signs: Vital Signs - 24 hr 02/28/23 17:15 02/28/23 22:12 Temperature 97.0 F 97.3 F Pulse Rate 71 85 Respiratory Rate 18 16 Blood Pressure 107/62 131/62 Pulse Oximetry 99 97 Oxygen Delivery Method Room Air Room Air BMI result Body Mass Index 34.8 Const General: healthy appearing, comfortable, no acute distress, alert and awake Nutritional Appearance: well nourished Orientation/consciousness: patient oriented x3 HENMT Head: Yes normocephalic and Yes atraumatic Eyes Eyelids: Yes eyelids normal Conjunctivae: conjunctivae normal Sclerae: sclerae normal Corneas: corneas normal Pupils: Equal, round and reactive pupils present EOM: EOMs intact bilaterally Neck Neck: Yes full ROM Resp Effort & Inspection: normal respiratory effort, able to speak in complete sentences, no audible wheezes and not labored Auscultation: clear to auscultation bilaterally Cardio Rate: regular rate Rhythm: regular rhythm GI Inspection: No distended Palpation (GI): Soft to palpation, not firm, nontender, no guarding and not rigid Auscultation: normoactive bowel sounds Skin General skin exam: no rashes or lesions noted and elasticity normal Neuro General: patient oriented x3 Cranial nerves: Yes Equal, round and reactive pupils present and Yes Bilaterally intact EOM present Cognition (Neuro): normal cognition Extrem Other: Moving all extremities well without any obvious deformities Course Course Course Narrative: RmE: 37 yold female presents to the ED for vaginal bleeding. and abdominal cramping. labs and ultrasound ordered Medical Decision Making Medical Decision Making MDM Narrative: Patient reports that she is here because she was told that she is last week but she also reports that she had a dilation and curettage 1 elective to see weeks ago. It is likely that she still had a detectable serum HCG when she went for her chest x-ray which is why she was told she was again. She had an ultrasound that does not show any intrauterine or retained products of conception. No ectopic seen at this time. Patient's labs are significant for an HCG of 4, which is likely still trending downward from her recent elective Differential Diagnosis Elective Spontaneous Retained products of conception Lab Data MDM Lab Attestation statement: I reviewed the patient's lab results. No leukocytosis, no anemia, no left shift. Chloride of 110, glucose of 125, no other significant lab abnormalities 02/28/23 19:07 02/28/23 19:07 Labs: Lab Results 02/28/23 02/28/23 02/28/23 Range/Units 19:07 19:07 19:07 WBC 9.8 (4.8-10.8) X10*3/uL RBC 4.37 (4.20-5.50) X10*6/uL Hgb 12.0 (12.0-16.0) g/dl Hct 37.3 (37.0-47.0) % MCV 85.4 (80.0-98.0) fL MCH 27.5 (27.0-33.0) pg MCHC 32.2 (31.0-35.0) g/dl RDW 14.7 (11.0-16.0) % Plt Count 197 (160-400) X10*3/uL MPV 11.8 (9.4-12.3) fL Immature Gran % (Auto) 0.2 (0.0-0.4) % Neut % (Auto) 63.4 (45-73) % Lymph % (Auto) 28.9 (20-40) % [place] % (Auto) 5.1 (2-11) % Eos % (Auto) 2.1 (0-4) % Baso % (Auto) 0.3 (0-2) % Lymph # (Auto) 2.8 (1.2-4.9) X10*3/uL [place] # (Auto) 0.5 (0.1-1.2) X10*3/uL Eos # (Auto) 0.2 (0.0-0.4) X10*3/uL Baso # (Auto) 0.0 (0.0-0.2) X10*3/uL Abs Immat Gran (auto) 0.02 (0.00-0.03) X10*3/uL Absolute Neuts (auto) 6.2 (2.0-8.3) x10*3/uL Absolute Nucleated RBC 0.000 (0.0-0.012) X10*3/uL Nucleated RBC % (auto) 0.0 (0.0-0.2) /100WBC PT 10.5 (10.0-13.1) SEC INR 0.9 (0.9-1.1) APTT 24.7 L (26.0-36.4) SEC Sodium 141 (135-145) mmol/L Potassium 3.8 (3.3-5.1) mmol/L Chloride 110 H (96-108) mmol/L Carbon Dioxide 22 (22-29) mmol/L Anion Gap 13 (12-20) BUN 11 (9-16) mg/dL Creatinine 0.76 (0.5-1.4) mg/dL Estim Creat Clear Calc 110.2 Estimated GFR > 60 Random Glucose 125 H (60-115) mg/dL Calcium 8.6 D (8.4-10.2) mg/dL Total Bilirubin 0.3 (0.0-1.0) mg/dL AST 14 (5-31) U/L ALT 13 (0-31) U/L Alkaline Phosphatase 71 (39-117) U/L Total Protein 6.8 (6.5-8.0) g/dL Albumin 3.6 (3.5-5.0) g/dL Beta HCG, Quant mIU/mL Urine Color Urine Appearance Urine pH (5.0-9.0) Ur Specific [place] (1.005-1.025) Urine Protein (Neg-Trace) mg/dL Urine Glucose (UA) (Negative) mg/dL Urine Ketones (Negative) mg/dL Urine Blood (Negative) Urine Nitrite (Negative) Ur Leukocyte Esterase (Negative) Blood Type 02/28/23 02/28/23 02/28/23 Range/Units 19:07 19:07 22:16 WBC (4.8-10.8) X10*3/uL RBC (4.20-5.50) X10*6/uL Hgb (12.0-16.0) g/dl Hct (37.0-47.0) % MCV (80.0-98.0) fL MCH (27.0-33.0) pg MCHC (31.0-35.0) g/dl RDW (11.0-16.0) % Plt Count (160-400) X10*3/uL MPV (9.4-12.3) fL Immature Gran % (Auto) (0.0-0.4) % Neut % (Auto) (45-73) % Lymph % (Auto) (20-40) % [place] % (Auto) (2-11) % Eos % (Auto) (0-4) % Baso % (Auto) (0-2) % Lymph # (Auto) (1.2-4.9) X10*3/uL [place] # (Auto) (0.1-1.2) X10*3/uL Eos # (Auto) (0.0-0.4) X10*3/uL Baso # (Auto) (0.0-0.2) X10*3/uL Abs Immat Gran (auto) (0.00-0.03) X10*3/uL Absolute Neuts (auto) (2.0-8.3) x10*3/uL Absolute Nucleated RBC (0.0-0.012) X10*3/uL Nucleated RBC % (auto) (0.0-0.2) /100WBC PT (10.0-13.1) SEC INR (0.9-1.1) APTT (26.0-36.4) SEC Sodium (135-145) mmol/L Potassium (3.3-5.1) mmol/L Chloride (96-108) mmol/L Carbon Dioxide (22-29) mmol/L Anion Gap (12-20) BUN (9-16) mg/dL Creatinine (0.5-1.4) mg/dL Estim Creat Clear Calc Estimated GFR Random Glucose (60-115) mg/dL Calcium (8.4-10.2) mg/dL Total Bilirubin (0.0-1.0) mg/dL AST (5-31) U/L ALT (0-31) U/L Alkaline Phosphatase (39-117) U/L Total Protein (6.5-8.0) g/dL Albumin (3.5-5.0) g/dL Beta HCG, Quant 4 mIU/mL Urine Color Yellow Urine Appearance Clear Urine pH 6.5 (5.0-9.0) Ur Specific [place] 1.015 (1.005-1.025) Urine Protein Negative (Neg-Trace) mg/dL Urine Glucose (UA) Negative (Negative) mg/dL Urine Ketones Negative (Negative) mg/dL Urine Blood Negative (Negative) Urine Nitrite Negative (Negative) Ur Leukocyte Esterase Negative (Negative) Blood Type A Positive Radiology Impression Discussion of test interpretation with radiology: I have reviewed the radiologist's reading. (No intrauterine seen, no ectopics seen, normal appearing endometrium) Discharge Plan Discharge Clinical Impression: Vaginal bleeding Patient Disposition: Home, Self-Care Instructions: Menorrhagia (ED) Additional Instructions: Your serum HCG was only 4. This is the hormone is likely still trending downward after your recent D&C It is likely that you are not again but your hormone was still detectable Follow-up with your primary doctor and return for new or worsening symptoms Prescriptions: No Action aspirin 81 mg tablet,chewable 2 tab PO .at bedtime 30 Days Qty: 60 2RF prenat.vits,jay,opl-[id number] Tablet 1 tab PO DAILY Interventions: ED Discharge Assessment Last Done: 02/28/23 22:56 Discharge Date/Time: 02/28/23 23:02
[2023-02-28 19:36] LABS: Alanine Aminotransferase 13 U/L (0-31); Albumin Level 3.6 g/dL (3.5-5.0); Alkaline Phosphatase 71 U/L (39-117); Anion Gap 13 (12-20); Aspartate Amino Transferase 14 U/L (5-31); Bilirubin Total 0.3 mg/dL (0.0-1.0); Blood Urea Nitrogen 11 mg/dL (9-16); Calcium 8.6 mg/dL (8.4-10.2); Carbon Dioxide 22 mmol/L (22-29); Chloride 110 mmol/L (96-108); Creatinine Clr Calc Pharmacy 110.2; Estimated Glomerular Filt Rate > 60; Glucose Random 125 mg/dL (60-115); Potassium 3.8 mmol/L (3.3-5.1); Sodium 141 mmol/L (135-145); Total Protein 6.8 g/dL (6.5-8.0)
--- NOTE | 2023-02-28 22:08 | PC.NURSE ---
pt brought into room 11 from waiting room @22:05
[2023-02-28 22:12] VITALS: BP 131/62; PULSE 85; RESP 16; TEMP 36.3; O2SAT 97
--- NOTE | 2023-02-28 22:18 | MHC.EDTECH ---
this pct just assumed care of patient ,vitals sign taken ,urine sample collected and sent to lab .
== END 2023-02-28 23:02 | disposition home or self-care (01) ==
PROVIDERS: Physician Assistant; Emergency Provider Emergency Medicine
DX: R10.30 Lower abdominal pain, unspecified (principal); N93.9 Abnormal uterine and vaginal bleeding, unspecified
CPT/HCPCS: 36415; 76801; 76817; 80053; 81003; 84702; 85025; 85610; 85730; 86900; 86901; 99283; 99284

== ENCOUNTER 2023-11-28 15:06 | Emergency (ER) | payer OTHER, SELFPAY ==
--- NOTE | ~2023-11-28 | XR_ITS ---
EXAMINATION: XR LUMBOSACRAL SPINE CLINICAL INFORMATION: : Back pain COMPARISON: None available. TECHNIQUE: Three views of the lumbosacral spine. FINDINGS: 5 nonrib-bearing lumbar vertebral bodies are visualized. Alignment is within normal limits. Lumbar vertebral body heights are maintained. There is mild narrowing of the L3/4, L4/5 and L5/S1 disc space heights. Sacroiliac joints are symmetric. XR/XR lumbar spine 2-3V IMPRESSION: Mild degenerative changes of the lower lumbar spine.
[2023-11-28 15:09] VITALS: BP 115/63; PULSE 82; RESP 18; TEMP 36.7; O2SAT 97; BMI 33.8
--- NOTE | 2023-11-28 15:09 | ED.BACK ---
HPI - Back Pain/Injury General Chief Complaint: Back Pain/Injury Stated Complaint: muscle spasms in back Time Seen by Provider: 11/28/23 15:27 Source: patient Mode of arrival: ambulatory Limitations: no limitations History of Present Illness HPI Narrative: 38 male presents to the ED for 4 months 4 months back pain radiading down both legs described as back spams. 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 Patient denies any urinary/ bowel incontinence, dysuria, hematuria, abdominal pain, nausea, vomiting, fever, chills,or flank pain. Patient denies any new trauma Related Data Home Medications Medication Instructions Recorded Confirmed prenat.vits,jay,yhh-caxm-lyapu 1 tab PO DAILY 04/30/21 07/03/21 Previous Rx's Medication Instructions Recorded aspirin 81 mg chewable tablet 2 tab PO .at bedtime 30 days #60 03/21/21 tabs cyclobenzaprine 10 mg tablet 10 mg PO BEDTIME PRN muscle spasm 11/28/23 7 days #7 tabs naproxen 500 mg tablet 500 mg PO BID PRN pain 7 days #14 11/28/23 tabs Allergies Allergy/AdvReac Type Severity Reaction Status Date / Time No Known Allergies Allergy Verified 11/28/23 15:09 [No Known Allergies*] Review of Systems Review of Systems: back pain radiating down both legs Yes all other systems are reviewed and are negative [facility] Past Medical History Medical History No known health problems Surgical History No pertinent past surgical history Family History Family History Father Back problem Diabetes Mother COPD (chronic obstructive pulmonary disease) Active asthma Sister Bipolar 1 disorder Chronic mental illness Asthma Schizophrenia Maternal Grandmother Cancer Paternal Grandmother Diabetes Maternal Grandmother Cervical cancer Sister Drug abuse Social History Social History Household Members: Children Alcohol intake: never Trauma History: none Agree to transfusion: Yes Advance Directives: No Advance Directives Information Provided: No Physical Exam Vital Signs: Vital Signs: Last Vital Signs Temp 98.0 F 11/28/23 17:39 Pulse 82 11/28/23 17:39 Resp 18 11/28/23 17:39 BP 115/63 11/28/23 17:39 Pulse Ox 97 11/28/23 17:39 O2 Del Method Room Air 11/28/23 17:39 BMI result Body Mass Index 33.8 Const: General: cooperative, healthy appearing, comfortable, no acute distress, well developed, alert, awake and Physically active Orientation/consciousness: oriented to person, oriented to place, oriented to time and patient oriented x3 HEENT: Head: Yes normal to inspection, Yes No palpable skull fracture present, Yes normocephalic, Yes atraumatic and No abrasion Eyes: General: appearance normal, both eyes and all related structures Neck: Neck: Yes normal visual inspection, Yes full ROM, Yes no lymphadenopathy, Yes no meningeal signs, Yes trachea midline, Yes supple, No anterior neck swelling and No tender Chest: Chest palpation & inspection: normal inspection of the chest and normal palpation of entire chest wall Resp: Effort & Inspection: normal respiratory effort and able to speak in complete sentences Auscultation: clear to auscultation bilaterally Cardio: Jugular venous distension: no JVD Heart sounds: S1 normal heart sound present and S2 normal heart sound present GI: Inspection: Yes normal to inspection Palpation (GI): Soft to palpation, not firm, nontender, no guarding and not rigid : General: No CVA tenderness Back/Spine/Pelvis: Back: No CVA tenderness and back tenderness (lumbar spine tenderness) Skin: General skin exam: no rashes or lesions noted, elasticity normal and turgor normal Neuro: General: oriented to person, oriented to place, oriented to time, patient oriented x3, gait normal, tone normal, moves all extremities, Normal light touch and pain sensation, no meningeal signs, no focal motor deficits, CN's II-XI intact bilaterally and normal sensation to monofilament Extrem: General: Yes normal to inspection, Yes full ROM and Yes capillary refill normal Psych: Appearance: grossly normal, well kempt and not disheveled Course Course Course Narrative: This is an RME: Additional HPI, ROS, PE not included below will be deferred to primary provider. Patient is a 38-year-old female presents emergency department for evaluation of muscle spasms to lower back, radiating to bilateral legs, bilateral foot parestheias. Onset 4-5 months ago without precipitating injury. Pain worse today which prompted her to come in today, she denies any relief with icy hot patches, Tylenol, Advil. Denies bladder bowel dysfunction. Medications Administered Discontinued Medications Generic Name Dose Route Start Last Admin Trade Name Freq PRN Reason Stop Dose Admin Ketorolac Tromethamine 30 mg 11/28/23 17:14 11/28/23 17:35 Ketorolac Tromethamine 30 Mg/Ml Vial IM 11/28/23 17:15 30 mg ONCE ONE Administration Medical Decision Making Medical Decision Making MDM Narrative: 38-year-old female with low back pain for the past 4 days radiating down both legs without any urinary/ bowel incontinence, recent trauma, fever, chills, abdominal pain, urinary symptoms, or any IV drug use. . 5:20pm: x-ray shows lumbar radiculopathy. Patient informed to follow up with primary care provider for re-evaluation. Patient explained worrisome signs and informed to return to ED if she has them. Not suspecting cauda equinua or epidural abscess. Not suspecting kidney stones or pyelonephritis. Patient given Toradol Differential Diagnosis Differential Diagnoses: The differential diagnosis associated with the presentation includes ( lumbar radiculopathy. Fracture) Independent Interpretation I performed an independent interpretation of an: Plain X-Ray Radiology Impression Discussion of test interpretation with radiology: I have reviewed the radiologist's reading. External Record Review External record reviewed: Other ( prior visit) Prescription Management I considered prescription management with: Pain Medication Discharge Plan Discharge Clinical Impression: Lumbar radiculopathy Patient Disposition: Home, Self-Care Instructions: Lumbar Radiculopathy (ED) Additional Instructions: recommend follow-up with primary care provider. Return to the ED immediately for any urinary/ bowel incontinence, nausea, vomiting, fever, chills, dysuria, hematuria, flank pain, weakness /paralysis of lower extremities, inability to walk, or any other concerning symptoms. Prescriptions: New naproxen 500 mg tablet 500 mg PO BID PRN (Reason: pain) 7 Days Qty: 14 0RF cyclobenzaprine 10 mg tablet 10 mg PO BEDTIME PRN (Reason: muscle spasm) 7 Days Qty: 7 0RF Rx Instructions: side effect is drowsiness. DO not take at work or while driving. No Action aspirin 81 mg tablet,chewable 2 tab PO .at bedtime 30 Days Qty: 60 2RF prenat.vits,jay,ozj-yrra-yzmgj Tablet 1 tab PO DAILY Stand Alone Forms: Work/School Release Interventions: ED Discharge Assessment Last Done: 11/28/23 17:39 Discharge Date/Time: 11/28/23 17:39 Print Language: [place]
[2023-11-28] MEDS: Ketorolac Tromethamine 30 MG/ML VIAL IM (17:35)
[2023-11-28 17:39] VITALS: BP 115/63; PULSE 82; RESP 18; TEMP 36.7; O2SAT 97
== END 2023-11-28 17:39 | disposition home or self-care (01) ==
PROVIDERS: Emergency Provider Student in an Organized Health Care Education/Training Program
DX: M54.16 Radiculopathy, lumbar region (principal)
CPT/HCPCS: 72100; 96372; 99283; 99284; J1885

== ENCOUNTER 2025-07-14 20:11 | Emergency (ER) | payer MEDICAID, SELFPAY ==
[2025-07-14 20:54] VITALS: BP 113/65; BP 117/72; PULSE 84; PULSE 86; RESP 16; TEMP 36.8; O2SAT 96; O2SAT 98; BMI 28.1
--- NOTE | 2025-07-14 21:01 | ECG_ITS ---
Test Reason : OD Blood Pressure : */* mmHG Vent. Rate : 74 BPM Atrial Rate : 74 BPM P-R Int : 176 ms QRS Dur : 90 ms QT Int : 388 ms P-R-T Axes : 36 57 23 degrees QTcB Int : 430 ms Normal sinus rhythm Normal ECG When compared with ECG of 04-Jan-2021 15:36, No significant change was found Referred By: Fide Keating Electronically Signed By: JAYLYN YOUSSEF MD
--- NOTE | 2025-07-14 21:13 | ED_ITS ---
HPI - Psych General Chief Complaint: Psychiatric Symptoms Stated Complaint: SI took approx 50 pills 100mg ea. of Gabapentin Time Seen by Provider: 07/14/25 20:58 Source: patient and EMS Mode of arrival: EMS Limitations: no limitations History of Present Illness ED Provider: Dr. Fide Keating HPI Narrative: Patient comes to the emergency room via ambulance complaining of a suicide attempt by ingesting gabapentin. According to the patient, she took a proximally 10 tablets of gabapentin. Initially, she told paramedics that she took over 50 tablets. Patient states that she is not sure how much he took. Patient states that she is very overwhelmed at home, she is a single mother, and is trying to make it through. Related Data Home Medications ?Medication ?Instructions ?Recorded ?Confirmed prenat.vits,jay,kto-udek-jowgh 1 tab PO DAILY 04/30/21 07/03/21 Previous Rx's ?Medication ?Instructions ?Recorded aspirin 81 mg chewable tablet 2 tab PO .at bedtime 30 days #60 03/21/21 tabs cyclobenzaprine 10 mg tablet 10 mg PO BEDTIME PRN musc le spasm 11/28/23 7 days #7 tabs naproxen 500 mg tablet 500 mg PO BID PRN pain 7 day s #14 11/28/23 tabs Allergies Allergy/AdvReac Type Severity Reaction Status Date / Time No Known Allergies (No Known Allergy Verified 07/14/25 20:58 Allergies*) Review of Systems 2 Review of Systems: Constitutional : No Weight loss, No Fever, No Chills, No Night Sweats, No Fatigue, No Malaise ENT/Mouth : No Hearing loss, No Ear Pain, No Nasal Congestion, No Sinus Pain, No Hoarseness, No sore throat, No Rhinorrhea, No Swallowing Difficulty Eyes: No Eye Pain, No Swelling, No Redness, No Foreign Body, No Discharge, No Vision Changes Cardiovascular : No Chest Pain, No SOB, No Dyspnea on Exertion, No Orthopnea, No Edema, No Palpitations Respiratory : No Cough, No Sputum, No Wheezing, No Smoke Exposure, No Dyspnea Gastrointestinal : No Nausea, No Vomiting, No Diarrhea, No Constipation, No abdominal Pain, No Hematochezia, No Melena Genitourinary : no irregular bleeding, No Dysuria, No Urinary Frequency, No Hematuria, No Urinary Incontinence, No Urgency, No Flank Pain, No Urinary Flow Changes, No Hesitancy Musculoskeletal : No joint pain, No Myalgias, No Joint Swelling Skin : No Skin Lesions, No rash Neuro : No Weakness, No Numbness, No Paresthesias, No Loss of Consciousness, No Dizziness, No Headache Psych : Complaining of anxiety, depression, suicide attempt, no HI, reports being a single mom of feeling overwhelmed Heme/Lymph: No Bruising, No Bleeding,No Lymphadenopathy Endocrine : No Polyuria, No Polydipsia, No Temperature Intolerance [facility] Past Medical History Medical History No known health problems Surgical History No pertinent past surgical history Family History Family History Father Back problem Diabetes Mother COPD (chronic obstructive pulmonary disease) Active asthma Sister Bipolar 1 disorder Chronic mental illness Asthma Schizophrenia Maternal Grandmother Cancer Paternal Grandmother Diabetes Maternal Grandmother Cervical cancer Sister Drug abuse Social History Social History Household Members: Children Alcohol intake: never Trauma History: none Agree to transfusion: Yes Advance Directives: No Advance Directives Information Provided: No Do you have a plan to hurt others: No Plan Patient : No Physical Exam 2 Exam: Exam: Appearance: Alert. Oriented X3. No acute distress. Eyes: Pupils equal, round and reactive to light. ENT: Pharynx normal. Neck: Normal inspection. Neck supple. No lymph nodes noted. No crepitus CVS: Normal heart rate and rhythm. Pulses normal. Normal S1 and S2 Respiratory: No respiratory distress. Breath sounds normal. No Wheezing. No rales Abdomen: Soft and nontender. No rigidity. No distention. Skin: Skin warm and dry. Normal skin color. Normal skin turgor. Extremities: No lower extremity edema. No Lacerations. No Rash Neuro: Oriented X 3. No motor deficit. No sensory deficit. Moving all extremities. No slurred speech. CN 2 through 12 grossly intact Psych: calm, cooperative, somnolent Vital Signs: Vital Signs: Last Vital Signs Temp 98.2 F 07/15/25 14:44 Pulse 75 07/15/25 14:44 Resp 20 07/15/25 14:44 BP 130/72 07/15/25 14:44 Pulse Ox 98 07/15/25 14:44 O2 Del Method Room Air 07/15/25 14:44 BMI result Body Mass Index 28.1 Course Course Course Narrative: patient claims that she took anywhere between 10-50 tablets of gabapentin. we are contacting poison control at this time, patient is awake, alert and oriented x3, vitals are stable All of patient's labs pending care team consult pending patient is on a section 12 Reevaluation(s) Reevaluation #1: 11:39 AM 07/15/2025 (Dr. Kt Roberson): Time: 11:45 Date: 07/15/25 Provider: Kt Roberson, DO Patient in physician observation for psychiatric evaluation.? No acute events reported overnight. No current complaints. VS stable.? Patient is in bed search status. Will continue to monitor. 2:49 PM 07/15/2025 (Dr. Kt Roberson): Patient we will be going to [facility] respite at [facility], at 16:30 Medications Administered Discontinued Medications Generic Name Dose Route Start Last Admin Trade Name Freq PRN Reason Stop Dose Admin Diphenhydramine HCl 50 mg 07/15/25 05:18 07/15/25 06:48 Diphenhydramine Hcl 25 Mg Capsule PO 07/15/25 05:19 Not Given ONCE ONE Lorazepam 2 mg 07/15/25 05:18 07/15/25 06:48 Lorazepam 1 Mg Tablet PO 07/15/25 05:19 Not Given ONCE ONE Medical Decision Making Medical Decision Making [facility] Narrative: my interpretation of EKG 1: Normal sinus rhythm, heart rate 74, no ST segment depression or elevation, no T-wave inversion, QTC 430 my interpretation of labs: No significant abnormality patient's hematology and chemistry, normal venous blood gases,, hCG negative, ETOH level negative, salicylates listed and acetaminophen level negative Poison control was contacted: Repeat EKG in 2 hours from the 1st EKG, if QTC is normal, patient may be medically clear EKG 2: QTC 431 Differential Diagnosis Differential Diagnoses: The differential diagnosis associated with the presentation includes ( anxiety, depression, suicide attempt) Admission/Observation Consideration of admission/observation: Escalation of care including admission/observation considered ( patient will likely need inpatient level of care) Lab Data MDM Lab Attestation statement: I reviewed the patient's lab results. 07/14/25 22:01 07/14/25 22:01 Labs: Lab Results 07/14/25 07/14/25 Range/Units 22:01 22:11 WBC 10.0 (4.8-10.8) X10*3/uL RBC 4.41 (4.20-5.50) X10*6/uL Hgb 11.8 L (12.0-16.0) g/dl Hct 36.9 L (37.0-47.0) % MCV 83.7 (80.0-98.0) fL MCH 26.8 L (27.0-33.0) pg MCHC 32.0 (31.0-35.0) g/dl RDW 15.0 (11.0-16.0) % Plt Count 255 D (160-400) X10*3/uL MPV 11.4 (9.4-12.3) fL Immature Gran % (Auto) 0.2 (0.0-0.4) % Neut % (Auto) 57.2 (45-73) % Lymph % (Auto) 34.4 (20-40) % [place] % (Auto) 5.8 (2-11) % Eos % (Auto) 2.0 (0-4) % Baso % (Auto) 0.4 (0-2) % Lymph # (Auto) 3.4 (1.2-4.9) X10*3/uL [place] # (Auto) 0.6 (0.1-1.2) X10*3/uL Eos # (Auto) 0.2 (0.0-0.4) X10*3/uL Baso # (Auto) 0.0 (0.0-0.2) X10*3/uL Abs Immat Gran (auto) 0.02 (0.00-0.03) X10*3/uL Absolute Neuts (auto) 5.7 (2.0-8.3) x10*3/uL Absolute Nucleated RBC 0.000 (0.0-0.012) X10*3/uL Nucleated RBC % (auto) 0.0 (0.0-0.2) /100WBC PT 12.5 (11.2-13.5) SEC INR 1.0 (0.9-1.1) VBG pH 7.41 (7.32-7.43) VBG pCO2 37 mmHg VBG pO2 85 mmHg VBG HCO3 24 (22-26) mmol/L VBG O2 Saturation 97.0 % VBG Base Excess 0.4 mmol/L Sodium 144 (135-145) mmol/L Potassium 3.5 (3.3-5.1) mmol/L Chloride 110 H (96-108) mmol/L Carbon Dioxide 23 (22-29) mmol/L Anion Gap 15 (12-20) BUN 12 (9-16) mg/dL Creatinine 0.72 (0.5-1.4) mg/dL Estim Creat Clear Calc 120.4 Estimated GFR > 60 Random Glucose 103 (60-115) mg/dL Calcium 9.1 (8.4-10.2) mg/dL Magnesium 1.8 (1.6-2.6) mg/dL Total Bilirubin 0.2 (0.0-1.0) mg/dL Direct Bilirubin < 0.2 (0.0-0.5) mg/dL AST 24 (5-31) U/L ALT 17 (0-31) U/L Alkaline Phosphatase 82 (39-117) U/L Ammonia 42 (13-55) umol/L Troponin I High Sens < 2.7 (<3.5-17.0) ng/L Total Protein 7.0 (6.5-8.0) g/dL Albumin 4.1 (3.5-5.0) g/dL Beta HCG, Quant < 2 mIU/mL Salicylates < 5.0 L (15-30) mg/dL Acetaminophen < 3 (<30) mcg/mL Ethyl Alcohol < 10 mg/dL Critical Care Time Critical Care Time Critical Care Time: Yes Total Critical Care Time: 60 Attestation: I have personally provided critical care time. Time includes review of lab data, radiology results, discussion with consultants, and monitoring for potential decompensation. Intervention performed as documented. Discharge Plan Discharge Clinical Impression: Suicide attempt, Intentional overdose of gabapentin Additional Instructions: You were seen in our Emergency Department today for treatment of a behavioral health issue. It is important after your visit that you follow up with either your behavioral health provider or a primary care doctor within 7 days.? If you have trouble finding a therapist you can reach out to [address] [phone] The National Suicide and Crisis Lifeline can be reached 7 days a week 24 hours a day.? Call 988 to speak with someone.? Return for any worsening symptoms or concerns such as thoughts of self harm or harm to others. Please call 911 if you feel your mental health is worsening.? Prescriptions: No Action naproxen 500 mg tablet 500 mg PO BID PRN (Reason: pain) 7 Days Qty: 14 0RF cyclobenzaprine 10 mg tablet 10 mg PO BEDTIME PRN (Reason: muscle spasm) 7 Days Qty: 7 0RF Rx Instructions: side effect is drowsiness. DO not take at work or while driving. aspirin 81 mg tablet,chewable 2 tab PO .at bedtime 30 Days Qty: 60 2RF prenat.vits,jay,qcr-[id number] Tablet 1 tab PO DAILY Interventions: Randall-Suicide Risk Severity Scale Last Done: 07/14/25 22:35 Print Language: Romanian
--- OUTSIDE RECORDS SUMMARY | 2025-07-14 21:25 | XMS_ITS | Encounter Summary ---
Author Organization [facility] Address [address] [place] [address] Phone Care Team Providers Care Lead Producer Name Role Phone Unavailable Primary Care Provider Unavailabl e Encounter Details Date Type Department Care Team (Late st Contact Info) Description 04/15/2017 Conversion Encounter [facility] - [address] [phone] Social History Tobacco Use Types Packs/Day Years Used Date Smoking Tobacco: Never Assessed Comments Unknown Sex and Gender Information Value Date Recorded Sex Assigned at Not on file Legal Sex Female 4:11 PM EDT Gender Identity Not on file Sexual Orientation Not on file documented as of this encounter Plan of Treatment Not on file documented as of this encounter Visit Diagnoses Not on filedocumented in this encounter
--- OUTSIDE RECORDS SUMMARY | 2025-07-14 21:25 | XMS_ITS | Clinical Summary ---
Author Organization [facility] Address [address] [place] [address] Care Team Providers Care Irrigation District Manager Name Role Phone Unavailable Primary Care Provider Unavailabl e Social History Tobacco Use Types Packs/Day Years Used Date Smoking Tobacco: Never Assessed Comments Unknown Sex and Gender Information Value Date Recorded Sex Assigned at Not on file Legal Sex Female 7:43 AM EST Gender Identity Not on file Sexual Orientation Not on file Plan of Treatment Health Maintenance Due Date Last Done Comments Breast Cancer Screening 1984 DTaP,Tdap,and Td Vaccines (1 - Tdap) 2003 Hepatitis B Vaccines (1 of 3 - 19+ 3-dose series) 2003 Cervical Cancer Screening: P ap Smear 2005 HPV Vaccines (1 - 3-dose SCD M series) 2011 Depression Screening 08/30/2024 COVID-19 Vaccine ( - 2024-2 6 season) 2025 Influenza Vaccine (#1) 2025 RSV Immunization Adult Patie nts (1 - 1-dose 75+ series) 2059 HIB Vaccines Aged Out No longer eligi ble based on patient's age to complete this topic Hepatitis A Vaccines Aged Out No long er eligible based on patient's age to complete this topic IPV Vaccines Aged Out No longer eligi ble based on patient's age to complete this topic MMR Vaccines Aged Out No longer eligi ble based on patient's age to complete this topic Meningococcal ACWY Vaccine Aged Out N o longer eligible based on patient's age to complete this topic Meningococcal B Vaccine Aged Out No l onger eligible based on patient's age to complete this topic Pneumococcal Vaccine: Pediat rics (0 to 5 Years) and At-Risk Patients (6 to 49 Years) Aged Out No longer eligible b ased on patient's age to complete this topic RSV Immunization Patients Un niurka 20 months Aged Out No longer eligible b ased on patient's age to complete this topic Varicella Vaccines Aged Out No longer eligible based on patient's age to complete this topic
--- OUTSIDE RECORDS SUMMARY | 2025-07-14 21:25 | XMS_ITS | Clinical Summary ---
Author Organization [facility] Address [address] [place] [address] Phone Care Team Providers Care City Route Driver Name Role Phone Unavailable Primary Care Provider Unavailabl e Immunizations Immunization Administration Dates Next Due DTP 01/28/1989, 6,05/08/1986,1985,1984 Hib (HbOC) 08/13/1986 MMR 01/20/1996,05/08/1986 OPV 01/28/1989, 6,02/07/1986,1984 Td (adult) (MBL), 2 Lf tetan us toxoid, PF, adsorbed 09/02/2005 Td (adult) (Tenivac), 5 Lf t etanus toxoid, PF, adsorbed 09/30/1995 Unknown Vaccine 09/02/2005 Social History Tobacco Use Types Packs/Day Years Used Date Smoking Tobacco: Never Assessed Comments Unknown Sex and Gender Information Value Date Recorded Sex Assigned at Not on file Legal Sex Female 4:11 PM EDT Gender Identity Not on file Sexual Orientation Not on file Plan of Treatment Health Maintenance Due Date Last Done Comments Varicella Vaccines (1 of 2 - 13+ 2-dose series) 1997 Hepatitis B Vaccines (1 of 3 - 19+ 3-dose series) 2003 DTaP,Tdap,and Td Vaccines (6 - Tdap) 09/03/2005 09/02/2005, 09/30/1995, 01/28/1989, Additional history exists HPV Vaccines (1 - 3-dose SCDM series) 2011 Influenza Vaccines (#1) 2025 COVID-19 Vaccine (2024- season) 2025 HIB Vaccines Completed 08/13/1986 IPV Vaccines Completed 01/28/1989, 07/30, 02/07/1986, Additional history exists MMR Vaccines Completed 01/20/1996, 05/08/1986 Hepatitis A Vaccines Aged Out No long er eligible based on patient's age to complete this topic Men B Vaccine Aged Out No longer elig ible based on patient's age to complete this topic Meningococcal Vaccine Aged Out No kassie everardo eligible based on patient's age to complete this topic Pneumococcal Vaccine Aged Out No long er eligible based on patient's age to complete this topic
[2025-07-14 22:11] LABS: MANUAL DIFF FLAG NO
[2025-07-14 22:12] LABS: Hematocrit 36.9 % (37.0-47.0); Hemoglobin 11.8 g/dl (12.0-16.0); Imm Gran Abs Auto 0.02 X10*3/uL (0.00-0.03); Imm Gran Pct Auto 0.2 % (0.0-0.4); Lymphocytes Absolute Auto 3.4 X10*3/uL (1.2-4.9); Mean Corpuscular HGB Conc 32.0 g/dl (31.0-35.0); Mean Corpuscular Hemoglobin 26.8 pg (27.0-33.0); Mean Corpuscular Volume 83.7 fL (80.0-98.0); NRBC Abs Auto 0.000 X10*3/uL (0.0-0.012); NRBC Pct Auto 0.0 /100WBC (0.0-0.2); Platelet Count 255 X10*3/uL (160-400); Red Blood Count 4.41 X10*6/uL (4.20-5.50); White Blood Count 10.0 X10*3/uL (4.8-10.8)
[2025-07-14 22:13] LABS: Venous Blood Gas Refer to POC result
[2025-07-14 22:14] LABS: VBG HCO3 24 mmol/L (22-26); VBG O2 % Saturation 97.0 %
[2025-07-14 22:17] LABS: Ammonia 42 umol/L (13-55)
[2025-07-14 22:28] LABS: INTERNATIONAL NORM RATIO 1.0 (0.9-1.1); Prothrombin Time 12.5 SEC (11.2-13.5)
[2025-07-14 22:33] LABS: Alanine Aminotransferase 17 U/L (0-31); Albumin Level 4.1 g/dL (3.5-5.0); Alkaline Phosphatase 82 U/L (39-117); Anion Gap 15 (12-20); Aspartate Amino Transferase 24 U/L (5-31); Blood Urea Nitrogen 12 mg/dL (9-16); Calcium 9.1 mg/dL (8.4-10.2); Carbon Dioxide 23 mmol/L (22-29); Chloride 110 mmol/L (96-108); Creatinine Clr Calc Pharmacy 120.4; Estimated Glomerular Filt Rate > 60; Magnesium 1.8 mg/dL (1.6-2.6); Potassium 3.5 mmol/L (3.3-5.1); Sodium 144 mmol/L (135-145); Total Protein 7.0 g/dL (6.5-8.0)
[2025-07-14 22:34] LABS: Acetaminophen LAB < 3 mcg/mL (<30); Salicylate < 5.0 mg/dL (15-30)
[2025-07-14 22:41] LABS: Troponin-I High Sensitivity < 2.7 ng/L (<3.5-17.0)
--- NOTE | 2025-07-14 23:50 | ECG_ITS ---
Test Reason : QTC CHECK Blood Pressure : */* mmHG Vent. Rate : 72 BPM Atrial Rate : 72 BPM P-R Int : 178 ms QRS Dur : 92 ms QT Int : 394 ms P-R-T Axes : 55 64 23 degrees QTcB Int : 431 ms Sinus rhythm with marked sinus arrhythmia Otherwise normal ECG When compared with ECG of 14-Jul-2025 21:45, No significant change was found Referred By: Fide Keating Electronically Signed By: JAYLYN YOUSSEF MD
--- NOTE | 2025-07-15 00:04 | PC.NURSE ---
Poison control called for an update. Update provided. Monitoring is ongoing.
--- NOTE | 2025-07-15 00:53 | PC.NURSE ---
Pt declines PO challenge stating he is still vomiting and feeling nauseas. made aware. New orders in the OCT.
--- NOTE | 2025-07-15 01:11 | PC.NURSE ---
Assumed care for pt at 2300. Pt has been sleeping at bedside. No apparent distress noted. Breaths are even regular and unlabored with equal chest rises. 1:1 sitter at bedside for safety. Monitoring is ongoing.
--- NOTE | 2025-07-15 05:05 | PC.NURSE ---
Pt is awake, alert, and ambulatory. Tearful. Reports feeling bad about her current situation stating she has been making bad decisions. Verbal reassurance provided. Food and drink provided as requested. Monitoring is ongoing.
[2025-07-15 06:45] VITALS: BP 102/56; PULSE 68; RESP 12; TEMP 37.1; O2SAT 99
[2025-07-15 08:00] VITALS: BP 117/60; PULSE 76; RESP 19; TEMP 36.4; O2SAT 99
--- NOTE | 2025-07-15 11:05 | MHC.CARE ---
Patient referred to [facility], confirmed referral recieved and activated. Spoke with Loly at [facility] @ [phone]. Possible bed available today. Filed [id number]
[2025-07-15 14:44] VITALS: BP 130/72; PULSE 75; RESP 20; TEMP 36.8; O2SAT 98
--- NOTE | 2025-07-15 14:53 | MHC.CARE ---
Accepted to [facility] for 4:30pm
[2025-07-15 15:05] LABS: Appearance Urine Hazy; Glucose Urine UA Negative (Negative); PH 6.0 (5.0-9.0); Specific Gravity - Urine 1.010 (1.005-1.025)
[2025-07-15 15:06] LABS: UMIC TRIGGER UACC YES
[2025-07-15 15:07] LABS: UACC Culture Trigger YES
[2025-07-15 15:13] LABS: Cannabinoid Screen Urine Not Detected (Not Detect)
[2025-07-15 16:08] VITALS: BP 130/72; PULSE 75; RESP 20; TEMP 36.8; O2SAT 98
== END 2025-07-15 16:11 ==
PROVIDERS: Emergency Provider Emergency Medicine; PCP Internal Medicine
DX: T42.6X2A Poisoning by other antiepileptic and sedative-hypnotic drugs, intentional self-harm, initial encounter (principal); Y92.9 Unspecified place or not applicable
CPT/HCPCS: 36415; 80048; 80076; 80143; 80179; 80307; 81001; 81003; 82140; 82803; 83735; 84484; 84702; 85025; 85610; 87086; 87147; 93005; 99285; S9485

== ENCOUNTER → 2025-07-14 21:01 | Outpatient (BNV) | payer MEDICAID, SELFPAY | PROVIDERS: Emergency Provider Emergency Medicine; PCP Internal Medicine; Visit Provider Internal Medicine Cardiovascular Disease | DX: T50.901A Poisoning by unspecified drugs, medicaments and biological substances, accidental (unintentional), initial encounter (principal); Z13.6 Encounter for screening for cardiovascular disorders | CPT/HCPCS: 93010 ==